=== PATIENT | male | born 1935 | race Caucasian/White ===

== ENCOUNTER 2017-02-04 12:34 | Emergency (ER) | payer MEDICARE, OTHER ==
[2017-02-04 12:41] VITALS: O2SAT 97
--- NOTE | 2017-02-04 13:13 | ERPHSYRPT ---
- History of Present Illness Time Seen by Provider: 02/04/17 13:09 Source: patient, family Exam Limitations: no limitations Patient Subjective Stated Complaint: PT REPORTS TAKING A FINAL DRINK OF COFFEE WHEN HE SWALLOWED SOMETHING-STATES THAT HE FELT IT IN HIS THROAT THEN CAN FEEL IT LOWER-UNSURE OF WHAT IT WAS-DENIES COUGH-DENIES SOB-DENIES PAIN Triage Nursing Assessment: PT PINK WARM ET [id number] EASY ET NONLABORED- BREATH SOUNDS EQUAL BILATERALLY-NO RETRACTIONS OR INCREASED WORK OF BREATHING NOTED Physician History: The patient is an 81-year-old male with his family complaining that something is stuck in his throat. About 30 minutes ago the patient made instant hot coffee in the microwave. He took a big drink of it and noticed something hard in the coffee. He unfortunately swallowed it and it stuck in his upper esophagus. On the way to the ER, it dislodged and moved farther down his esophagus. He states it is stuck there his stomach. He states he can feel it. He is able to swallow his saliva. He has no shortness of breath. He does not know what it could be because it was instant coffee. His past medical history is unremarkable. Timing/Duration: today Severity: mild Modifying Factors: Improves With: eating Associated Symptoms: denies symptoms Allergies/Adverse Reactions: No Known Drug Allergies Allergy (Verified 02/04/17 12:42) Home Medications: No Home Meds 1 ea UD 02/04/17 [History] Hx Tetanus, Diphtheria Vaccination/Date Given: No Hx Influenza Vaccination/Date Given: Yes Hx Pneumococcal Vaccination/Date Given: No Immunizations Up to Date: Yes - Review of Systems Constitutional: No Fever, No Chills Eyes: No Symptoms Ears, Nose, & Throat: Other (FB in throat) Respiratory: No Cough, No Dyspnea Cardiac: No Chest Pain, No Edema, No Syncope Abdominal/Gastrointestinal: No Abdominal Pain, No Nausea, No Vomiting, No Diarrhea Genitourinary Symptoms: No Dysuria Musculoskeletal: No Back Pain, No Neck Pain Skin: No Rash Neurological: No Dizziness, No Focal Weakness, No Sensory Changes Psychological: No Symptoms Endocrine: No Symptoms Hematologic/Lymphatic: No Symptoms Immunological/Allergic: No Symptoms All Other Systems: Reviewed and Negative - Past Medical History Pertinent Past Medical History: Yes Neurological History: No Pertinent History ENT History: No Pertinent History Cardiac History: No Pertinent History Respiratory History: No Pertinent History Endocrine Medical History: No Pertinent History Musculoskeletal History: No Pertinent History GI Medical History: Hernia History: Bladder Cancer Psycho-Social History: No Pertinent History Male Reproductive Disorders: No Pertinent History - Past Surgical History Past Surgical History: Yes Neuro Surgical History: Other Cardiac: No Pertinent History Respiratory: No Pertinent History Gastrointestinal: Hernia Repair, Other Genitourinary: No Pertinent History Male Surgical History: Other Other Surgical History: non-hodkins lymphoma exploratory surgery x two, bladder growths removed r/t bladder cancer - Social History Smoking Status: Never smoker Exposure to second hand smoke: No Drug Use: none Patient Lives Alone: No - Nursing Vital Signs Nursing Vital Signs: Initial Vital Signs Temperature 98.1 F Temperature Source Oral Pulse Rate 72 Respiratory Rate 18 Blood Pressure [] 124/79 Pain Intensity 0 - Physical Exam General Appearance: no apparent distress, alert Eye Exam: PERRL/EOMI, eyes nml inspection Ears, Nose, Throat Exam: normal ENT inspection, TMs normal, pharynx normal, moist mucous membranes Neck Exam: normal inspection, non-tender, supple, full range of motion Respiratory Exam: normal breath sounds, lungs clear, No respiratory distress Cardiovascular Exam: regular rate/rhythm, normal heart sounds, normal peripheral pulses Gastrointestinal/Abdomen Exam: soft, normal bowel sounds, No tenderness, No mass Rectal Exam: not done Back Exam: normal inspection, normal range of motion, No CVA tenderness, No vertebral tenderness Extremity Exam: normal inspection, normal range of motion, pelvis stable Neurologic Exam: alert, oriented x 3, cooperative, normal mood/affect, nml cerebellar function, nml station & gait, sensation nml, No motor deficits Skin Exam: normal color, warm, dry, No rash Lymphatic Exam: No adenopathy SpO2 Interpretation: normal SpO2: 97 Oxygen Delivery: Room Air - Radiology Exams Other X-ray Interpretation: Teleradiologist Report (No opaque FB per Dr Peck) Chest X-ray Interpretation: Teleradiologist Report (No opaque FB per Dr Peck) Abdomen X-ray Interpretation: Teleradiologist Report (NO opaque FB per Dr Peck) Ordered Tests: Active Orders 24 hr Category Date Time Status ABDOMEN 2 VIEW Stat Exams 02/04/17 13:15 Completed CHEST 2 VIEWS (PA AND LAT) Stat Exams 02/04/17 13:13 Completed NECK SOFT TISSUE Stat Exams 02/04/17 13:13 Completed - Progress Progress: improved Progress Note: 02/04/17 14:33 The soft tissue neck x-ray, chest x-ray, and abdominal x-ray, did not show any radio opaque foreign bodies. The patient ate crackers and drank water and states he feels that the foreign body that was stuck in the bottom of his esophagus has now passed through. He feels fine now. Counseled pt/family regarding: diagnosis, rad results - Departure Time of Disposition: 14:35 Departure Disposition: Home Clinical Impression: Esophageal foreign body Condition: Stable Critical Care Time: No Additional Instructions: You had a foreign body in her lower esophagus. When you drank water and ate crackers, it dislodged it and caused to pass through. The x-rays were normal. Follow-up as needed.
[2017-02-04 13:48] VITALS: PULSE 72
--- NOTE | 2017-02-04 14:18 | XRAY ---
Exam: Two-view chest from 02/04/2017 Comparison: Two-view chest from 10/30/2016. Indication: Patient was drinking coffee and felt like he was getting choked, questionable foreign body. Findings: Upright PA and lateral chest films are submitted for evaluation. The heart size and contour are normal. A minimal epicardial fat pad is seen on the left. The sarahi and mediastinal structures appear intact. There is no evidence of mediastinal shift or unilateral air trapping. No radiopaque soft tissue foreign body is seen. No air space infiltrates, vascular congestion, pneumothorax, or pleural fluid is seen. I believe there is a tiny calcified granuloma at the lateral right lower lobe representing no change. Mild lower dorsal kyphosis and diffuse thoracic spondylosis are seen. Impression: 1. No infiltrates or other acute cardiopulmonary disease is seen. I see no definite evidence of foreign body, midline shift, or asymmetric air trapping within one hemithorax.
--- NOTE | 2017-02-04 14:24 | XRAY ---
Exam: Two-view soft tissue neck (4 images) from 02/04/2017. Comparison: None. Indication: Patient was having coffee and felt like he got choked. Findings: 2 AP images and 2 lateral images are submitted for evaluation. The cervical airway appears unremarkable. There is no radiopaque soft tissue foreign body or prevertebral soft tissue swelling. There is mild degenerative disc disease at C6-C7 manifested by interspace narrowing and mild to moderate anterior vertebral endplate spurring. Only a few teeth and dental hardware remain within the anterior lower mouth. The patient may have dentures which are nonopaque. Correlate clinically. I note some soft tissue calcification on each side of midline at the C5 level which may represent vascular calcification within the carotid artery bifurcations. Apophyseal joint spurring is seen within the mid to lower cervical spine. Impression: 1. No radiopaque soft tissue foreign body is seen. The cervical airway and prevertebral soft tissues appear unremarkable. The epiglottis is of normal size. 2. Mild degenerative disc disease is seen at C6-C7. I also note some apophyseal joint osteoarthritis on each side of midline within the mid to lower cervical spine. 3. Atherosclerotic vascular calcification is seen within both carotid artery bifurcations.
--- NOTE | 2017-02-04 14:26 | XRAY ---
Exam: Two-view abdomen from 02/04/2017. Comparison: None. Indication: Patient was drinking coffee when he got choked, questionable foreign body. Findings: 2 supine images of the abdomen and an upright image of the abdomen were obtained. The bowel gas pattern appears unremarkable. A mild amount of scattered colonic stool is seen. No organomegaly or free intraperitoneal air is seen. Numerous surgical clips are seen projected over the left side of the L3 vertebral body. Correlate with surgical history. There is a small calcification within the lower aspect of the pelvis on each side of midline, likely representing a phlebolith. Correlate clinically to exclude a distal ureteral stone. Mild osteophyte formation is seen within the lower thoracolumbar lumbar spine. Impression: 1. Unremarkable bowel gas pattern. Specifically, I see no radiopaque soft tissue foreign body. 2. No free intraperineal air is seen. 3. Evidence of prior mid abdominal surgery. Correlate with surgical history.
[2017-02-04 14:42] VITALS: BP 131/74
== END 2017-02-04 14:42 | disposition home or self-care (01) ==
LOC: ED 12:34
DX: T18.108A Unspecified foreign body in esophagus causing other injury, initial encounter (principal)
CPT/HCPCS: 70360; 71020; 74020; 99281; 99283

== ENCOUNTER 2017-03-11 09:13 | Day surgery (SDC) | payer MEDICARE, OTHER ==
[~2017-03-11 09:13] MED LIST: ACETAZOLAMIDE 250 MG TABLET PO ONE; Ak-Dilate OPHTHALMIC*** 0.71 ML, Cyclogyl 1% OPHTH SOL 5 ML 0.71 ML, GATIFLOXACIN 0.5% ... OP ONE; BETADINE 5% OPHTHALMIC 30 ML OP ONE; BSS 500 ML, Fortaz/Tazicef 1 GM** 0.2 G IO ONE; Epinephrine Preservative Free 1 MG/ML INTRAOP ONE; LIDOCAINE HCL 1% AMPUL 5 ML IJ ONE; Lactated Ringers 1,000 ML IV ONE; Lactated Ringers 1,000 ML IV SCH; TETRACAINE 0.5% STERI-UNIT SOL OP ONE; Zofran 4 MG/2 ML VIAL IV PRN
[2017-03-11] MEDS ORDERED: GARAMYCIN 0.3% OPHTH SOL OP ONE (09:14)
[2017-03-11] MEDS ORDERED: DIPRIVAN 200 MG/20 ML IV ONE (09:14)
[2017-03-11 13:03] VITALS: BP 133/59; PULSE 54; O2SAT 98
--- NOTE | 2017-03-11 13:43 | OP ---
DATE/TIME OF OPERATION: 03/11/2017 1121 TIME DICTATED: 1312 PREOPERATIVE DIAGNOSIS: Senile cataract of right eye. POSTOPERATIVE DIAGNOSIS: Senile cataract of right eye. SURGEON: Diamante Jiang MD T[employer] AIRCRAFT CONTROLLER: None. OPERATION: Cataract extraction of right eye with an intraocular lens implant. STANDARD __X___ COMPLEX ANESTHESIA: MAC. ___X___ Monitored anesthesia care in combination with topical and intra-cameral anesthesia (because of the established specific risk of reflux, arrhythmias, or an anxiety attack associated with ocular manipulation as well as difficulty of the digital service engineer to manage such potentially catastrophic events while simultaneously attempting to complete the surgical procedure, it was deemed necessary for the patient's safety to have an anesthesiologist or a nurse turn down attendant present during the procedure whenever possible. The anesthesiologist or the nurse turn down attendant was utilized to monitor and regulate the intravenous sedation of the patient, so the patient was cooperative, relaxed, and comfortable). Topical anesthesia using Tetracaine eye drops together with intra cameral anesthesia using Lidocaine 1% MPF. The nurse was utilized to monitor the patient. ANESTHESIA PROVIDER: Devon Conrad CRNA. COMPLICATIONS: None. BLOOD LOSS: None. INDICATIONS: The patient is undergoing cataract surgery in the hopes of eliminating the visual complaints and difficulty. PROCEDURE: After arriving at the facility's outpatient surgery area, an IV was started; the patient was given 5 mg of p.o. Versed. (If an anesthesia provider was not monitoring the patient) The patient was then given topical anesthetic Tetracaine eye drops. A cotton pellet was soaked into a solution of a combination of Zymaxid 0.5%, Benjamin-Synephrine 2.5% and Ocufen (other drops might have been substituted referenced in the patient's record). The pellet was inserted by the RN into the lower conjunctival cul-de-sac with a sterile forceps and left for 20 minutes. The pellet was then removed by the RN with a sterile forceps before taking the patient to the operating room. The preoperative area nurse identified the patient and marked the correct eye to be operated on. I identified the correct eye to be operated on and marked it appropriately in the outpatient surgery area. The patient was then taken into the operating room. Tetracaine eye drops were installed again in the correct eye. The eyelids and the lashes and the lid margins were scrubbed with Betadine solution. One drop of the diluted Betadine solution was placed in the conjunctival cul-de-sac for 45 seconds and then was irrigated. A drop of Tetracaine Gel was placed in the conjunctival cul-de-sac. The patient's forehead was taped to secure it during the procedure. The patient was monitored. The patient was then draped in the usual way for this procedure. An eye speculum was used to separate the eyelids. The eye was then fixated and a temporal 2.5 mm incision was made in the clear cornea temporally at the limbus. Through the incision, 0.25 cc of 1% non-preserved lidocaine was injected into the anterior chamber for intracameral anesthesia. The anterior chamber was then filled with viscoelastic. The pupil was small. I felt that it would be safer to mechanically dilate the pupil. A Malyugin ring was used at this point which dilated the pupil. That was removed at the end of the procedure prior to aspiration of the viscoelastic from the anterior chamber and posterior to the intraocular lens implant. The cataract had a great amount of cortical changes. That rendered seeing the anterior capsule difficult for a safe performance of an anterior capsulotomy. I injected an air bubble into the anterior chamber. I then injected 1 ML of vision blue solution into the anterior chamber. The vision blue solution was irrigated from the anterior chamber after 30 seconds. The anterior capsule was stained which facilitated performing the anterior capsulotomy safely. After that was completed, a cystotome was introduced into the anterior chamber and a round anterior capsulotomy was performed. The capsule was removed by a forceps. Hydrodissection was next carried utilizing a 25-gauge cannula and balanced salt solution to delineate the cortical material from the capsule and the nucleus from the cortical material. The nucleus was rotated freely into the capsular bag with no difficulty. The phaco tip of the [employer] Phacoemulsifier was introduced into the anterior chamber and two grooves were made into the nucleus 90 degrees apart. Using two spatulas resulted into the nucleus being fractured into four quadrants. The phaco tip was then used to remove each quadrant of the nucleus. Viscoelastic was used during this process to protect the corneal endothelium. Once the entire nucleus was removed, the phaco tip then was removed and the irrigation tip was introduced into the eye and the cortex was removed. The posterior capsule was polished. It was noticed that there was a tear into the posterior capsule with few vitreous strands into the pupil plan. An anterior vitrectomy was performed. A 21.50 diopter, ZXR00 Symfony implant, was inspected and found to be grossly normal. The implant was inserted into the implant injector cartridge; Viscoelastic again was introduced into the anterior chamber, which filled the capsular bag. The implant injector's cartridge tip was placed at the limbal wound and the posterior chamber implant was released into the capsular bag and rotated appropriately. The implant was found to be into the capsular bag and it was centered. ___X__ 0.2 ml of Tri-Moxi was introduced via 27 gauge cannula into the vitreous cavity through the ciliary processes. Viscoelastic was aspirated from the anterior chamber and posterior to the intraocular lens implant from the capsular bag using the irrigating tip. The anterior chamber was irrigated and filled with 5 cc antibiotic solution (500 cc of BSS plus 2 ml of Fortaz 100 mg/ml) ( if patient was not allergic to the medication). The lips of the corneal incision were hydrated using BSS solution. The anterior chamber was checked and found to be water tight. One drop each of antibiotic, steroid and NSAID drops (refer to chart for drops used) were placed in the conjunctival cul-de-sac of the operated eye. Patient tolerated the procedure quite well and left the operating room in satisfactory condition. NOTES: 1) Gentamicin was used in the conjunctival cul-de-sac at the end of the procedure and to use four times a day for one week. 2) Two limbal relaxing incisions were made at the beginning of the procedure at the 170 degree meridian. DISCHARGE SUMMARY: The patient was released in stable condition. The patient and those with the patient were given an instruction sheet as of how to care for the eye after surgery as well as counseling on any abnormal laboratory studies by the postoperative RN. The patient was also given an appointment card for follow-up in the office and is to call immediately for any difficulties including but not limited to pain in the eye, decreased vision, discharge from the eye, headache and or fever. DISCHARGE DIAGNOSIS: Pseudophakia of right eye.
== END 2017-03-11 13:15 | disposition home or self-care (01) ==
LOC: SDC 09:13
PROVIDERS: ATTEND Ophthalmology
PROC: 08RJ3JZ Replacement of Right Lens with Synthetic Substitute, Percutaneous Approach (ICD-10-PCS; principal; 2017-03-11)
PROC: 08B43ZZ Excision of Right Vitreous, Percutaneous Approach (ICD-10-PCS; 2017-03-11)
DX: H25.9 Unspecified age-related cataract (principal)
CPT/HCPCS: 00142; 99100; C1780; J0171; J2704; S0581; A9270-GY

== ENCOUNTER 2017-04-15 11:18 | Day surgery (SDC) | payer MEDICARE, OTHER ==
[~2017-04-15 11:18] MED LIST changes: -BETADINE 5% OPHTHALMIC 30 ML OP ONE; -BSS 500 ML, Fortaz/Tazicef 1 GM** 0.2 G IO ONE; -Epinephrine Preservative Free 1 MG/ML INTRAOP ONE; -LIDOCAINE HCL 1% AMPUL 5 ML IJ ONE
[2017-04-15] MEDS ORDERED: DIPRIVAN 200 MG/20 ML IV ONE (11:19)
[2017-04-15] MEDS ORDERED: Epinephrine Preservative Free 1 MG/ML INTRAOP ONE (13:00)
[2017-04-15] MEDS ORDERED: BETADINE 5% OPHTHALMIC 30 ML OP ONE (13:00)
[2017-04-15] MEDS ORDERED: BSS 500 ML, Fortaz/Tazicef 1 GM** 0.2 G IO ONE ×2 (13:00)
[2017-04-15] MEDS ORDERED: LIDOCAINE HCL 1% AMPUL 5 ML IJ ONE (13:00)
[2017-04-15 13:29] VITALS: O2SAT 97
[2017-04-15 13:44] VITALS: BP 122/66; PULSE 56
--- NOTE | 2017-04-16 08:14 | OP ---
DATE/TIME OF OPERATION: 04/15/2017 1232 TIME DICTATED: PREOPERATIVE DIAGNOSIS: Senile cataract of left eye. POSTOPERATIVE DIAGNOSIS: Senile cataract of left eye. SURGEON: Diamante Jiang MD LENS HARDENER: None. OPERATION: Cataract extraction of left eye with an intraocular lens implant. STANDARD COMPLEX __X____ ANESTHESIA: MAC. ___X___ Monitored anesthesia care in combination with topical and intra-cameral anesthesia (because of the established specific risk of reflux, arrhythmias, or an anxiety attack associated with ocular manipulation as well as difficulty of the numerologist to manage such potentially catastrophic events while simultaneously attempting to complete the surgical procedure, it was deemed necessary for the patient's safety to have an anesthesiologist or a nurse engraver block present during the procedure whenever possible. The anesthesiologist or the nurse engraver block was utilized to monitor and regulate the intravenous sedation of the patient, so the patient was cooperative, relaxed, and comfortable). Topical anesthesia using Tetracaine eye drops together with intra cameral anesthesia using Lidocaine 1% MPF. The nurse was utilized to monitor the patient. ANESTHESIA PROVIDER: Devon Conrad CRNA. COMPLICATIONS: None. BLOOD LOSS: None. INDICATIONS: The patient is undergoing cataract surgery in the hopes of eliminating the visual complaints and difficulty. PROCEDURE: After arriving at the facility's outpatient surgery area, an IV was started; the patient was given 5 mg of p.o. Versed. (If an anesthesia provider was not monitoring the patient) The patient was then given topical anesthetic Tetracaine eye drops. A cotton pellet was soaked into a solution of a combination of Zymaxid 0.5%, Benjamin-Synephrine 2.5% and Ocufen (other drops might have been substituted referenced in the patient's record). The pellet was inserted by the RN into the lower conjunctival cul-de-sac with a sterile forceps and left for 20 minutes. The pellet was then removed by the RN with a sterile forceps before taking the patient to the operating room. The preoperative area nurse identified the patient and marked the correct eye to be operated on. I identified the correct eye to be operated on and marked it appropriately in the outpatient surgery area. The patient was then taken into the operating room. Tetracaine eye drops were installed again in the correct eye. The eyelids and the lashes and the lid margins were scrubbed with Betadine solution. One drop of the diluted Betadine solution was placed in the conjunctival cul-de-sac for 45 seconds and then was irrigated. A drop of Tetracaine Gel was placed in the conjunctival cul-de-sac. The patient's forehead was taped to secure it during the procedure. The patient was monitored. The patient was then draped in the usual way for this procedure. An eye speculum was used to separate the eyelids. The eye was then fixated and a temporal 2.5 mm incision was made in the clear cornea temporally at the limbus. Through the incision, 0.25 cc of 1% non-preserved lidocaine was injected into the anterior chamber for intracameral anesthesia. The anterior chamber was then filled with viscoelastic. __X___ The pupil was small. I felt that it would be safer to mechanically dilate the pupil. A Malyugin ring was used at this point which dilated the pupil. That was removed at the end of the procedure prior to aspiration of the viscoelastic from the anterior chamber and posterior to the intraocular lens implant. The cataract had a great amount of cortical changes. That rendered seeing the anterior capsule difficult for a safe performance of an anterior capsulotomy. I injected an air bubble into the anterior chamber. I then injected 1 ML of vision blue solution into the anterior chamber. The vision blue solution was irrigated from the anterior chamber after 30 seconds. The anterior capsule was stained which facilitated performing the anterior capsulotomy safely. After that was completed, a cystotome was introduced into the anterior chamber and a round anterior capsulotomy was performed. The capsule was removed by a forceps. Hydrodissection was next carried utilizing a 25-gauge cannula and balanced salt solution to delineate the cortical material from the capsule and the nucleus from the cortical material. The nucleus was rotated freely into the capsular bag with no difficulty. The phaco tip of the [employer] Phacoemulsifier was introduced into the anterior chamber and two grooves were made into the nucleus 90 degrees apart. Using two spatulas resulted into the nucleus being fractured into four quadrants. The phaco tip was then used to remove each quadrant of the nucleus. Viscoelastic was used during this process to protect the corneal endothelium. Once the entire nucleus was removed, the phaco tip then was removed and the irrigation tip was introduced into the eye and the cortex was removed. The posterior capsule was polished. It was noticed that there was a tear into the posterior capsule with few vitreous strands into the pupil plan. An anterior vitrectomy was performed. A 21.00 diopter, ZXR00, Symfony posterior chamber lens implant, was inspected and found to be grossly normal. The implant was inserted into the implant injector cartridge; Viscoelastic again was introduced into the anterior chamber, which filled the capsular bag. The implant injector's cartridge tip was placed at the limbal wound and the posterior chamber implant was released into the capsular bag and rotated appropriately. The implant was found to be into the capsular bag and it was centered. __X___ 0.2 ml of Tri-Moxi was introduced via 27 gauge cannula into the vitreous cavity through the ciliary processes. Viscoelastic was aspirated from the anterior chamber and posterior to the intraocular lens implant from the capsular bag using the irrigating tip. The anterior chamber was irrigated and filled with 5 cc antibiotic solution (500 cc of BSS plus 2 ml of Fortaz 100 mg/ml) ( if patient was not allergic to the medication). The lips of the corneal incision were hydrated using BSS solution. The anterior chamber was checked and found to be water tight. One drop each of antibiotic, steroid and NSAID drops (refer to chart for drops used) were placed in the conjunctival cul-de-sac of the operated eye. Patient tolerated the procedure quite well and left the operating room in satisfactory condition. DISCHARGE SUMMARY: The patient was released in stable condition. The patient and those with the patient were given an instruction sheet as of how to care for the eye after surgery as well as counseling on any abnormal laboratory studies by the postoperative RN. The patient was also given an appointment card for follow-up in the office and is to call immediately for any difficulties including but not limited to pain in the eye, decreased vision, discharge from the eye, headache and or fever. DISCHARGE DIAGNOSIS: Pseudophakia of left eye.
== END 2017-04-15 13:40 | disposition home or self-care (01) ==
LOC: SDC 11:18
PROVIDERS: ATTEND Ophthalmology
PROC: 08RK3JZ Replacement of Left Lens with Synthetic Substitute, Percutaneous Approach (ICD-10-PCS; principal; 2017-04-15)
DX: H25.9 Unspecified age-related cataract (principal)
CPT/HCPCS: 65820; 66982; V2788; 00142; 99100; J0171; J2704; A9270-GY

== ENCOUNTER 2021-12-13 14:53 | Emergency (ER) | payer MEDICARE, OTHER ==
--- NOTE | 2021-12-13 15:06 | ERPHSYRPT ---
- History of Present Illness Time Seen by Provider: 12/13/21 15:06 Historian: patient, family Exam Limitations: no limitations Physician History: This is an 86-year-old white male patient of Dr. Delcid who presents to the emergency department with a complaint of constipation and associated weight loss. This patient has a history of non-Hodgkin's lymphoma which required exploratory laparotomy approximately 20 years ago. Patient has also had superficial, low-grade bladder tumors/cancers that have been excised over the last several years. Finally, he has had right jaw surgery to remove a cancer. He did not receive any chemotherapy or radiation for this surgery. The jaw surgery was performed approximately 1 year ago. At that time, he weighed approximately 8 185 pounds. In the following weeks to months he did lose weight because he was not eating well but did reach a point where he weighed approximately 175 pounds. That weight he maintained until approximately 2 weeks ago when he began not feeling like he wanted to eat. He felt bloated. He began having some constipation issues. He finally had a bowel movement this morning that he describes as a good bowel movement following recommendations/prescriptions from Dr. Delcid yesterday. This regimen included fiber Gummies and laxatives. Prior to that, he did not have a bowel movement for 6 days. He states he just does not have much of an appetite. Patient has appointment to see his primary care doctor, Dr. Mckeon, tomorrow morning at 10 AM Timing/Duration: day(s) (6) Activities at Onset: none Pain Radiation: no radiation Severity of Pain-Max: none Severity of Pain-Current: none Modifying Factors: Improves With: nothing Associated Symptoms: loss of appetite, weakness, other (Constipation and weight loss) Previous symptoms: no prior history Allergies/Adverse Reactions: No Known Drug Allergies Allergy (Verified 12/13/21 15:09) Home Medications: Ibuprofen 400 mg PO Q4HPRN PRN 03/11/17 [History] Hx Tetanus, Diphtheria Vaccination/Date Given: No Hx Influenza Vaccination/Date Given: Yes Hx Pneumococcal Vaccination/Date Given: No Travel Risk - International Travel Have you traveled outside of the country in past 3 weeks: No - Coronavirus Screening Are you exhibiting any of the following symptoms?: No Close contact with a COVID-19 positive Pt in past 14-21 Days: No - Review of Systems Constitutional: Weakness, Weight Loss Eyes: No Symptoms Ears, Nose, & Throat: No Symptoms Respiratory: No Symptoms Cardiac: No Symptoms Abdominal/Gastrointestinal: Constipation, Appetite Changes Genitourinary Symptoms: No Symptoms Musculoskeletal: No Symptoms Skin: No Symptoms Neurological: No Symptoms Psychological: No Symptoms Endocrine: No Symptoms Hematologic/Lymphatic: No Symptoms Immunological/Allergic: No Symptoms All Other Systems: Reviewed and Negative - Past Medical History Pertinent Past Medical History: Yes Neurological History: No Pertinent History ENT History: Cataracts Cardiac History: No Pertinent History Respiratory History: No Pertinent History Endocrine Medical History: No Pertinent History Musculoskeletal History: No Pertinent History GI Medical History: Hernia History: Bladder Cancer Psycho-Social History: No Pertinent History Male Reproductive Disorders: No Pertinent History - Past Surgical History Past Surgical History: Yes Neuro Surgical History: Other Cardiac: No Pertinent History Respiratory: No Pertinent History Gastrointestinal: Hernia Repair, Other Genitourinary: No Pertinent History Musculoskeletal: No Pertinent History Male Surgical History: Other Other Surgical History: non-hodkins lymphoma exploratory surgery x two, bladder growths removed r/t bladder cancer - Social History Smoking Status: Never smoker Exposure to second hand smoke: No Drug Use: none Patient Lives Alone: No - Nursing Vital Signs Nursing Vital Signs: Initial Vital Signs Temperature 98.4 F 12/13/21 15:08 Pulse Rate 76 12/13/21 15:08 Respiratory Rate 18 12/13/21 15:08 Blood Pressure 142/70 12/13/21 15:08 O2 Sat by Pulse Oximetry 98 12/13/21 15:08 Pain Scale Pain Intensity 0 - Physical Exam General Appearance: no apparent distress, alert Eye Exam: PERRL/EOMI, eyes nml inspection Ears, Nose, Throat Exam: normal ENT inspection, moist mucous membranes Neck Exam: normal inspection, non-tender, supple, full range of motion Respiratory Exam: normal breath sounds, lungs clear, No chest tenderness, No re spiratory distress Cardiovascular Exam: regular rate/rhythm, normal heart sounds, normal peripheral pulses Gastrointestinal/Abdomen Exam: soft, normal bowel sounds, No tenderness, No mass Rectal Exam: not done Back Exam: normal inspection, normal range of motion, No CVA tenderness, No vertebral tenderness Extremity Exam: normal inspection, normal range of motion, pelvis stable Neurologic Exam: alert, oriented x 3, cooperative, test department helper II-XII nml as tested, normal mood/affect, sensation nml Skin Exam: normal color, warm, dry Lymphatic Exam: No adenopathy SpO2 Interpretation: normal O2 Delivery: Room Air - Course Nursing assessment & vital signs reviewed: Yes Ordered Tests: Active Orders 24 hr Category Date Time Status IV Insertion STAT Care 12/13/21 15:22 Active ABDOMEN AND PELVIS W/0 CONTRAS [CT] Stat Exams 12/13/21 15:23 Completed AMYLASE Stat Lab 12/13/21 15:55 Completed CBC W DIFF Stat Lab 12/13/21 15:55 Completed CMP Stat Lab 12/13/21 15:55 Completed LIPASE Stat Lab 12/13/21 15:55 Completed UA W/RFX CULTURE Stat Lab 12/13/21 16:48 Completed Medication Summary Generic Name Dose Route Start Last Admin Trade Name Freq PRN Reason Stop Dose Admin Sodium Chloride 1,000 mls @ 100 mls/hr 12/13/21 15:30 12/13/21 15:37 Sodium Chloride 0.9% 1000 Ml IV 01/12/22 15:29 100 mls/hr .Q10H TAHIRA Administration Lab/Rad Data: Laboratory Result Diagrams 12/13/21 15:55 12/13/21 15:55 Laboratory Results 12/13/21 12/13/21 12/13/21 Range/Units 16:48 15:55 15:55 WBC 6.0 (4.0-10.5) x10^3/uL RBC 4.85 (4.1-5.6) x10^6/uL Hgb 13.5 (12.5-18.0) g/dL Hct 42.6 (42-50) % MCV 87.8 (78-100) fL MCH 27.8 (26-32) pg MCHC 31.7 L (32-36) g/dL RDW 12.9 (11.5-14.0) % Plt Count 248 (150-450) x10^3/uL MPV 8.8 (7.5-11.0) fL Gran % 74.3 H (36.0-66.0) % Immature Gran % (Auto) 0.2 (0.00-0.4) % Nucleat RBC Rel Count 0.0 (0.00-0.1) % Eos # (Auto) 0.03 (0-0.5) x10^3/uL Immature Gran # (Auto) 0.01 (0.00-0.03) x10^3u/L Absolute Lymphs (auto) 1.05 (1.0-4.6) x10^3/uL Absolute Monos (auto) 0.42 (0.0-1.3) x10^3/uL Absolute Nucleated RBC 0.00 (0.00-0.01) x10^3u/L Lymphocytes % 17.6 L (24.0-44.0) % Monocytes % 7.1 (0.0-12.0) % Eosinophils % 0.5 (0.00-5.0) % Basophils % 0.3 (0.0-0.4) % Absolute Granulocytes 4.42 (1.4-6.9) x10^3/uL Basophils # 0.02 (0-0.4) x10^3/uL Sodium 136 L (137-145) mmol/L Potassium 5.0 (3.5-5.1) mmol/L Chloride 100 (98-107) mmol/L Carbon Dioxide 27 (22-30) mmol/L Anion Gap 14.8 (5-15) MEQ/L BUN 27 H (9-20) mg/dL Creatinine 1.14 (0.66-1.25) mg/dL Estimated GFR > 60.0 ML/MIN Glucose 91 (74-106) mg/dL Calcium 8.9 (8.4-10.2) mg/dL Total Bilirubin 0.70 (0.2-1.3) mg/dL AST 29 (17-59) U/L ALT 21 (0-50) U/L Alkaline Phosphatase 74 (38-126) U/L Serum Total Protein 6.5 (6.3-8.2) g/dL Albumin 3.8 (3.5-5.0) g/dL Amylase 53 (30-110) U/L Lipase 73 (23-300) U/L Urinalys Dipstick Clnc MAIN LAB Urine Color YELLOW (YELLOW) Urine Appearance CLEAR (CLEAR) Urine pH 5.5 (5-6) Ur Specific [place] >=1.030 (1.005-1.025) POC Urine Protein Conf NEGATIVE (Negative) Urine Ketones TRACE (NEGATIVE) Urine Nitrite NEGATIVE (NEGATIVE) Urine Bilirubin NEGATIVE (NEGATIVE) Urine Urobilinogen 0.2 (0-1) mg/dL Urine Leukocytes NEGATIVE (NEGATIVE) Urine WBC (Auto) 0-2 (0-5) /HPF Urine RBC (Auto) 0-2 (0-2) /HPF U Epithel Cells (Auto) NONE (FEW) /HPF Urine Bacteria (Auto) NONE (NEGATIVE) /HPF Urine RBC NEGATIVE (0-5) Lauri/ul Urine Mucus (Auto) SLIGHT (NEGATIVE) /HPF Ur Culture Indicated? NO Urine Glucose NEGATIVE (NEGATIVE) mg/dL - Progress Progress: improved Counseled pt/family regarding: lab results, diagnosis, need for follow-up, rad results - Departure Departure Disposition: Home Clinical Impression: Constipation, Intraabdominal mass, Mild dehydration Condition: Stable Critical Care Time: No Referrals: ALESHA MCKEON MD [Primary Care Provider] - Follow up/PCP as directed Additional Instructions: Drink plenty of liquids. Continue the regimen to help your constipation as discussed and as given by your outpatient doctor. Keep your appointment with Dr. Mckeon tomorrow.
[2021-12-13] MEDS ORDERED: Sodium Chloride 0.9% 1000 ML 1,000 ML IV SCH (15:30)
[2021-12-13] MEDS ORDERED: Sodium Chloride 0.9% 1000 ML 1,000 ML ONE (15:37)
[2021-12-13 16:01] LABS: Absolute Neutrophil Ct (ANC) 4.42 x10^3/uL (1.4-6.9); Basophil (Absolute #) 0.02 x10^3/uL (0-0.4); Eosinophil % 0.5 % (0.00-5.0); Eosinophil (Absolute #) 0.03 x10^3/uL (0-0.5); Hematocrit 42.6 % (42-50); Hemoglobin 13.5 g/dL (12.5-18.0); Lymphocyte (Absolute #) 1.05 x10^3/uL (1.0-4.6); Lymphocytes % 17.6 % (24.0-44.0); Mean Cell Volume 87.8 fL (78-100); Mean Corpuscular Hemoglobin 27.8 pg (26-32); Mean Corpuscular Hgb Concent. 31.7 g/dL (32-36); Mean Platelet Volume 8.8 fL (7.5-11.0); Monocyte (Absolute #) 0.42 x10^3/uL (0.0-1.3); Monocytes % 7.1 % (0.0-12.0); Neutrophil % 74.3 % (36.0-66.0); Platelet Count 248 x10^3/uL (150-450); Red Blood Count 4.85 x10^6/uL (4.1-5.6); Red Cell Distribution Width 12.9 % (11.5-14.0)
[2021-12-13 16:20] LABS: ALBUMIN 3.8 g/dL (3.5-5.0); ALKALINE PHOSPHATASE 74 U/L (38-126); AMYLASE 53 U/L (30-110); ANION GAP 14.8 MEQ/L (5-15); BLOOD UREA NITROGEN 27 mg/dL (9-20); CHLORIDE 100 mmol/L (98-107); Calcium 8.9 mg/dL (8.4-10.2); Carbon Dioxide 27 mmol/L (22-30); Creatinine 1 1.14 mg/dL (0.66-1.25); EST GLOMERULAR FILTRATION RATE > 60.0 ML/MIN; Glucose 91 mg/dL (74-106); LIPASE 73 U/L (23-300); SGOT/AST 29 U/L (17-59); SGPT/ALT 21 U/L (0-50); SODIUM 136 mmol/L (137-145); Total Protein 6.5 g/dL (6.3-8.2)
--- NOTE | 2021-12-13 16:30 | XRAY ---
Indication: Weight loss and constipation. History of lymphoma, squamous cell carcinoma, and bladder cancer. Multiple contiguous axial images obtained through the abdomen and pelvis without contrast. Comparison: None Lung bases demonstrates minimal fibrosis/scarring. No infiltrate or effusion. Heart not enlarged. Small hiatal hernia. Noncontrasted stomach and bowel loops appear nonobstructed with normal appendix. Mild scattered colonic fecal debris greatest in the sigmoid. Midabdomen demonstrates 5.3 x 6.1 x 6.8 cm irregular soft tissue mass just inferior to pancreas presumed known lymphoma. No free fluid/air. 4.2 cm left mid renal cyst. Left kidney is also mildly hydronephrotic with proximal ureteral prominence up to 1.3 cm, tapering L3 level without ureteral calculus. Enlarged prostate gland impresses on the base of the bladder. A few tiny splenic calcified granulomas. Remaining liver, gallbladder, pancreas, spleen, adrenal glands, kidneys, ureters, and bladder are unremarkable for noncontrast exam. Moderate scattered vascular calcifications. Through 3.3 x 3.9 cm infrarenal fusiform aortic aneurysm. Osseous structures intact with osteopenia and mild degenerative changes throughout the thoracolumbar spine and both hips. Impression: 1. Midabdomen mesenteric soft tissue mass presumed known lymphoma as clinically reported. Outside comparison studies recommended if available. 2. Mild left renal hydronephrosis and proximal ureter dilatation without distal calculus. Retrograde pyelogram may yield further information if clinically warranted. 3. Incidental small hiatal hernia, mild diffuse fecal stasis, enlarged prostate gland, arteriosclerotic disease with distal AAA, and chronic bony findings.
[2021-12-13 16:55] LABS: Mucus SLIGHT /HPF (NEGATIVE); RBC 0-2 /HPF (0-2); WBC 0-2 /HPF (0-5)
[2021-12-13 17:00] LABS: Appearance CLEAR (CLEAR)
[2021-12-13 17:01] LABS: Bilirubin NEGATIVE (NEGATIVE); Dipstick done @ ? MAIN LAB; Glucose NEGATIVE (NEGATIVE); Ketones TRACE (NEGATIVE); Nitrite NEGATIVE (NEGATIVE); Ph 5.5 (5-6); Protein,Urine Dip NEGATIVE (Negative); RBC NEGATIVE Ery/ul (0-5); Specific Gravity >=1.030 (1.005-1.025); Urobilinogen 0.2 mg/dL (0-1)
[2021-12-13 17:02] LABS: Urine Cultured Indicated? NO
[2021-12-13 17:07] VITALS: BP 147/73; PULSE 62; O2SAT 97
== END 2021-12-13 17:39 | disposition home or self-care (01) ==
LOC: ED 14:53
DX: R19.09 Other intra-abdominal and pelvic swelling, mass and lump (principal); K59.00 Constipation, unspecified; E86.0 Dehydration; Z85.72 Personal history of non-Hodgkin lymphomas; Z85.51 Personal history of malignant neoplasm of bladder; Z85.89 Personal history of malignant neoplasm of other organs and systems; R63.0 Anorexia; R53.1 Weakness
CPT/HCPCS: 36415; 74176; 80053; 81015; 82150; 83690; 85025; 99284

== ENCOUNTER 2022-11-18 12:18 | Inpatient (IN) | payer MEDICARE, OTHER ==
[2022-11-18] MEDS ORDERED: Lasix 40 MG/4 ML IV ONE (13:10)
[2022-11-18 13:39] LABS: Hematocrit 30.4 % (42-50); Hemoglobin 9.4 g/dL (12.5-18.0); Mean Cell Volume 88.9 fL (78-100); Mean Corpuscular Hemoglobin 27.5 pg (26-32); Mean Corpuscular Hgb Concent. 30.9 g/dL (32-36); Mean Platelet Volume 9.3 fL (7.5-11.0); Platelet Count 212 x10^3/uL (150-450); Red Blood Count 3.42 x10^6/uL (4.1-5.6); Red Cell Distribution Width 14.3 % (11.5-14.0); White Blood Count 8.3 x10^3/uL (4.0-10.5)
[2022-11-18] MEDS: ROCEPHIN 1 Gm-D5w 50 ml Bag** 1 G/50 ML IVPB IV SCH (13:45)
[2022-11-18 14:01] LABS: ANION GAP 9.9 MEQ/L (5-15); BLOOD UREA NITROGEN 14 mg/dL (9-20); CHLORIDE 103 mmol/L (98-107); Calcium 7.5 mg/dL (8.4-10.2); Carbon Dioxide 26 mmol/L (22-30); Creatinine 1 0.78 mg/dL (0.66-1.25); EST GLOMERULAR FILTRATION RATE > 60.0 ML/MIN; Glucose 119 mg/dL (74-106); PREALBUMIN 7.99 mg/dL (17.6-36.0); Potassium 3.8 mmol/L (3.5-5.1); SODIUM 135 mmol/L (137-145)
[2022-11-18] MEDS: Zithromax 500 MG/ 250 ML NaCl Premix 500 MG/250 ML IVPB IV SCH (15:00)
--- NOTE | 2022-11-18 16:35 | PCM.HP ---
History of Present Illness - Chief Complaint Chief Complaint: pneumonia History of Present Illness: is a 87 year old male with cough, shortness of breath and fever, was seen in [facility] and xray showed some pneumonia and volume overload, he was given lasix and is having a very small amount of urine output every 10 minutes, he feels like he needs to go more but having trouble. He notes worsening of his cough and dyspnea, has a history of chf previously. - Review of Systems Constitutional: Fever Respiratory: Cough, Short Of Breath Cardiac: No Chest Pain, No Edema, No Syncope Abdominal/Gastrointestinal: No Abdominal Pain, No Nausea, No Vomiting, No Diarrhea Skin: No Rash All Other Systems: Reviewed and Negative Medications & Allergies Home Medications: Home Medication List Ibuprofen 400 mg PO Q4HPRN PRN 03/11/17 [History Confirmed 11/18/22] Cholecalciferol (Vitamin D3) [Vitamin D] 1,000 unit PO DAILY 11/18/22 [History Confirmed 11/18/22] Allergies/Adverse Reactions: Allergies Allergy/AdvReac Type Severity Reaction Status Date / Time No Known Drug Allergies Allergy Verified 12/13/21 15:09 - Past Medical History Past Medical History: Yes Neurological History: No Pertinent History ENT History: Cataracts Cardiac History: No Pertinent History Respiratory History: No Pertinent History Endocrine Medical History: No Pertinent History Musculoskelatal History: No Pertinent History GI Medical History: Hernia History: Bladder Cancer Pyscho-Social History: No Pertinent History Male Reproductive Disorders: No Pertinent History Comment: Nonhodgkins lymphoma twice, 20 yrs ago and again in 2021. just finished last chemo treatment 3 months ago. - Past Surgical History Past Surgical History: Yes Neuro Surgical History: Other Cardiac History: No Pertinent History Respiratory Surgery: No Pertinent History GI Surgical History: Hernia Repair, Other Genitourinary Surgical Hx: No Pertinent History Musculskeletal Surgical Hx: No Pertinent History Male Surgical History: Other Other Surgical History: non-hodkins lymphoma exploratory surgery x two, bladder growths removed r/t bladder cancer - Social History Smoking Status: Former smoker Exposure to second hand smoke: No Alcohol: None Drug Use: none - Physical Exam Vital Signs: Vital Signs - 24 hr Temp Pulse Resp BP Pulse Ox 11/18/22 16:00 98.3 F 76 16 126/60 94 L 11/18/22 12:45 101.2 F 83 143/67 88 L 11/18/22 12:44 88 L 11/18/22 12:36 101.2 F 83 30 H 143/67 88 L General Appearance: no apparent distress Neurologic Exam: alert, oriented x 3, cooperative Respiratory Exam: crackles/rales, rhonchi Cardiovascular Exam: regular rate/rhythm, normal heart sounds, normal peripheral pulses Gastrointestinal/Abdomen Exam: soft, normal bowel sounds, No tenderness, No mass Results - Labs Lab/Micro Results: Lab Results-Last 24 Hours 11/18/22 11/18/22 Range/Units 13:28 13:28 WBC 8.3 (4.0-10.5) x10^3/uL RBC 3.42 L (4.1-5.6) x10^6/uL Hgb 9.4 L (12.5-18.0) g/dL Hct 30.4 L (42-50) % MCV 88.9 (78-100) fL MCH 27.5 (26-32) pg MCHC 30.9 L (32-36) g/dL RDW 14.3 H (11.5-14.0) % Plt Count 212 (150-450) x10^3/uL MPV 9.3 (7.5-11.0) fL Sodium 135 L (137-145) mmol/L Potassium 3.8 (3.5-5.1) mmol/L Chloride 103 (98-107) mmol/L Carbon Dioxide 26 (22-30) mmol/L Anion Gap 9.9 (5-15) MEQ/L BUN 14 (9-20) mg/dL Creatinine 0.78 (0.66-1.25) mg/dL Estimated GFR > 60.0 ML/MIN Glucose 119 H (74-106) mg/dL Calcium 7.5 L (8.4-10.2) mg/dL Prealbumin 7.99 L (17.6-36.0) mg/dL - Other Procedures and Tests Respiratory Therapy 11/18/22 12:34 Oxygen NASAL CANNULA 2 lpm Assessment/Plan (1) Pneumonia Current Visit: Yes Status: Acute Assessment & Plan: rocephin/zithromax ordered for CAP, blood cultures pending. Code(s): J18.9 - PNEUMONIA, UNSPECIFIED ORGANISM (2) CHF (congestive heart failure) Current Visit: Yes Status: Acute Assessment & Plan: IV lasix given, due to retention estrella ordered Code(s): I50.9 - HEART FAILURE, UNSPECIFIED (3) Urinary retention Current Visit: Yes Status: Acute Assessment & Plan: insert FC Code(s): R33.9 - RETENTION OF URINE, UNSPECIFIED
[2022-11-18] MEDS ORDERED: Flomax 0.4 MG PO ONE (17:12)
[2022-11-18] MEDS: DUONEB 0.5-3 MG/3 ml Neb IH SCH ×3 (17:13→23:23)
[2022-11-18 21:13] LABS: Appearance Clear (Clear); Bacteria None Seen /HPF (None Seen); Bilirubin Negative (Negative); Blood Large (Negative); Epithelial Cells None Seen /HPF (None Seen); Glucose, Urine Negative (Negative); Hyaline Casts NONE SEEN /LPF (0-2); Ketones Negative (Negative); Leukocyte Esterase Negative (Negative); Nitrite Negative (Negative); Protein,Urine Dip Negative (Negative); RBC 21-50 /HPF (0-5); Urobilinogen 0.2 mg/dL (0.2); WBC 0-2 /HPF (0-5)
[2022-11-18 21:18] LABS: ADD URINE CULTURE? NO (NO)
[2022-11-19] MEDS: DUONEB 0.5-3 MG/3 ml Neb IH SCH ×3 (05:22→18:44)
[2022-11-19 05:32] LABS: Absolute Neutrophil Ct (ANC) 4.12 x10^3/uL (1.4-6.9); BASOPHIL % 0.2 % (0.0-0.4); Basophil (Absolute #) 0.01 x10^3/uL (0-0.4); Eosinophil % 0.3 % (0.00-5.0); Eosinophil (Absolute #) 0.02 x10^3/uL (0-0.5); Hemoglobin 9.1 g/dL (12.5-18.0); IMMATURE GRAN # 0.03 x10^3u/L (0.00-0.03); IMMATURE GRAN % 0.5 % (0.00-0.4); Lymphocyte (Absolute #) 1.12 x10^3/uL (1.0-4.6); Lymphocytes % 19.3 % (24.0-44.0); Mean Cell Volume 90.6 fL (78-100); Mean Corpuscular Hemoglobin 27.5 pg (26-32); Mean Corpuscular Hgb Concent. 30.3 g/dL (32-36); Mean Platelet Volume 9.5 fL (7.5-11.0); Monocyte (Absolute #) 0.49 x10^3/uL (0.0-1.3); Monocytes % 8.5 % (0.0-12.0); Neutrophil % 71.2 % (36.0-66.0); Platelet Count 229 x10^3/uL (150-450); Red Blood Count 3.31 x10^6/uL (4.1-5.6); Red Cell Distribution Width 14.2 % (11.5-14.0); White Blood Count 5.8 x10^3/uL (4.0-10.5)
[2022-11-19 05:54] LABS: BLOOD UREA NITROGEN 15 mg/dL (9-20); CHLORIDE 102 mmol/L (98-107); Calcium 7.6 mg/dL (8.4-10.2); Carbon Dioxide 28 mmol/L (22-30); Creatinine 1 0.78 mg/dL (0.66-1.25); EST GLOMERULAR FILTRATION RATE > 60.0 ML/MIN; Glucose 92 mg/dL (74-106); MAGNESIUM 2.1 mg/dL (1.6-2.3); NT PRO BNPII 10500 pg/mL (<300); Potassium 3.6 mmol/L (3.5-5.1); SODIUM 136 mmol/L (137-145)
[2022-11-19] MEDS ORDERED: Klor Con PO ONE (08:30)
[2022-11-19] MEDS ORDERED: Lasix 40 MG/4 ML IV ONE (08:30)
--- NOTE | 2022-11-19 08:33 | PCM.NOTE ---
Date and Time: 11/19/22 08 patient feeling better this am, was able to void well overnight. his breathing is improved, has some sputum production with cough. Objective Exam General Appearance: no apparent distress Skin Exam: normal color, warm Wound Assessment: Skin/Wound Assessment Wound/Incision Assessment Start: 11/18/22 13:13 Text: Status: Active Freq: Q6H Protocol: Document 11/19/22 02:00 WW (Rec: 11/19/22 02:25 WW [id number]) Wound Photo Photo Taken No Respiratory Exam: crackles/rales Cardiovascular Exam: regular rate/rhythm, normal heart sounds Gastrointestinal/Abdomen Exam: soft, No tenderness, No mass OBJECTIVE DATA Vital Signs: Vital Signs - 24 hr Temp Pulse Resp BP Pulse Ox 11/19/22 07:30 98.4 F 84 16 133/67 92 L 11/19/22 05:22 74 15 94 L 11/19/22 03:59 98.0 F 63 18 118/55 96 11/18/22 23:38 98.4 F 69 22 147/68 96 11/18/22 23:23 64 15 94 L 11/18/22 20:00 98.7 F 71 20 116/58 94 L 11/18/22 17:16 70 16 93 L 11/18/22 16:00 98.3 F 76 16 126/60 94 L 11/18/22 12:45 101.2 F 83 143/67 88 L 11/18/22 12:44 88 L 11/18/22 12:36 101.2 F 83 30 H 143/67 88 L Pain Assessment - Last Documented Pain Intensity 0 Intake and Output: Intake & Output 11/16/22 11/17/22 11/18/22 11/19/22 11:59 11:59 11:59 11:59 Intake Total 1160 Output Total 1845 Balance -685 Weight 74.4 kg Lab Results: Lab Results-Last 24 Hours 11/18/22 11/18/22 11/18/22 Range/Units 13:28 13:28 13:28 WBC 8.3 (4.0-10.5) x10^3/uL RBC 3.42 L (4.1-5.6) x10^6/uL Hgb 9.4 L (12.5-18.0) g/dL Hct 30.4 L (42-50) % MCV 88.9 (78-100) fL MCH 27.5 (26-32) pg MCHC 30.9 L (32-36) g/dL RDW 14.3 H (11.5-14.0) % Plt Count 212 (150-450) x10^3/uL MPV 9.3 (7.5-11.0) fL Gran % (36.0-66.0) % Immature Gran % (Auto) (0.00-0.4) % Nucleat RBC Rel Count (0.00-0.1) % Eos # (Auto) (0-0.5) x10^3/uL Immature Gran # (Auto) (0.00-0.03) x10^3u/L Absolute Lymphs (auto) (1.0-4.6) x10^3/uL Absolute Monos (auto) (0.0-1.3) x10^3/uL Absolute Nucleated RBC (0.00-0.01) x10^3u/L Lymphocytes % (24.0-44.0) % Monocytes % (0.0-12.0) % Eosinophils % (0.00-5.0) % Basophils % (0.0-0.4) % Absolute Granulocytes (1.4-6.9) x10^3/uL Basophils # (0-0.4) x10^3/uL Sodium 135 L (137-145) mmol/L Potassium 3.8 (3.5-5.1) mmol/L Chloride 103 (98-107) mmol/L Carbon Dioxide 26 (22-30) mmol/L Anion Gap 9.9 (5-15) MEQ/L BUN 14 (9-20) mg/dL Creatinine 0.78 (0.66-1.25) mg/dL Estimated GFR > 60.0 ML/MIN Glucose 119 H (74-106) mg/dL Calcium 7.5 L (8.4-10.2) mg/dL Magnesium (1.6-2.3) mg/dL NT-Pro-B Natriuret Pep (<300) pg/mL Prealbumin 7.99 L (17.6-36.0) mg/dL PSA Screen 6.900 H (0-4) ng/mL Urine Color (Yellow) Urine Appearance (Clear) Urine pH (4.6-8.0) Ur Specific [place] (1.005-1.030) Urine Protein (Negative) Urine Glucose (UA) (Negative) mg/dL Urine Ketones (Negative) Urine Blood (Negative) Urine Nitrite (Negative) Urine Bilirubin (Negative) Urine Urobilinogen (0.2) mg/dL Ur Leukocyte Esterase (Negative) U Hyaline Cast (Auto) (0-2) /LPF Urine Microscopic RBC (0-5) /HPF Urine Microscopic WBC (0-5) /HPF Ur Epithelial Cells (None Seen) /HPF Urine Bacteria (None Seen) /HPF Urine Culture Reflexed (NO) 11/18/22 11/19/22 11/19/22 Range/Units 21:00 04:31 04:31 WBC 5.8 (4.0-10.5) x10^3/uL RBC 3.31 L (4.1-5.6) x10^6/uL Hgb 9.1 L (12.5-18.0) g/dL Hct 30.0 L (42-50) % MCV 90.6 (78-100) fL MCH 27.5 (26-32) pg MCHC 30.3 L (32-36) g/dL RDW 14.2 H (11.5-14.0) % Plt Count 229 (150-450) x10^3/uL MPV 9.5 (7.5-11.0) fL Gran % 71.2 H (36.0-66.0) % Immature Gran % (Auto) 0.5 H (0.00-0.4) % Nucleat RBC Rel Count 0.0 (0.00-0.1) % Eos # (Auto) 0.02 (0-0.5) x10^3/uL Immature Gran # (Auto) 0.03 (0.00-0.03) x10^3u/L Absolute Lymphs (auto) 1.12 (1.0-4.6) x10^3/uL Absolute Monos (auto) 0.49 (0.0-1.3) x10^3/uL Absolute Nucleated RBC 0.00 (0.00-0.01) x10^3u/L Lymphocytes % 19.3 L (24.0-44.0) % Monocytes % 8.5 (0.0-12.0) % Eosinophils % 0.3 (0.00-5.0) % Basophils % 0.2 (0.0-0.4) % Absolute Granulocytes 4.12 (1.4-6.9) x10^3/uL Basophils # 0.01 (0-0.4) x10^3/uL Sodium 136 L (137-145) mmol/L Potassium 3.6 (3.5-5.1) mmol/L Chloride 102 (98-107) mmol/L Carbon Dioxide 28 (22-30) mmol/L Anion Gap 10.0 (5-15) MEQ/L BUN 15 (9-20) mg/dL Creatinine 0.78 (0.66-1.25) mg/dL Estimated GFR > 60.0 ML/MIN Glucose 92 (74-106) mg/dL Calcium 7.6 L (8.4-10.2) mg/dL Magnesium 2.1 (1.6-2.3) mg/dL NT-Pro-B Natriuret Pep 90881 (<300) pg/mL Prealbumin (17.6-36.0) mg/dL PSA Screen (0-4) ng/mL Urine Color Yellow (Yellow) Urine Appearance Clear (Clear) Urine pH 5.0 (4.6-8.0) Ur Specific [place] 1.010 (1.005-1.030) Urine Protein Negative (Negative) Urine Glucose (UA) Negative (Negative) mg/dL Urine Ketones Negative (Negative) Urine Blood Large A (Negative) Urine Nitrite Negative (Negative) Urine Bilirubin Negative (Negative) Urine Urobilinogen 0.2 (0.2) mg/dL Ur Leukocyte Esterase Negative (Negative) U Hyaline Cast (Auto) NONE SEEN (0-2) /LPF Urine Microscopic RBC 21-50 A (0-5) /HPF Urine Microscopic WBC 0-2 (0-5) /HPF Ur Epithelial Cells None Seen (None Seen) /HPF Urine Bacteria None Seen (None Seen) /HPF Urine Culture Reflexed NO (NO) Assessment/Plan (1) Pneumonia Current Visit: Yes Status: Acute Assessment & Plan: continue rocephin/zithromax, blood culture pending. clinically improving Code(s): J18.9 - PNEUMONIA, UNSPECIFIED ORGANISM (2) CHF (congestive heart failure) Current Visit: Yes Status: Acute Assessment & Plan: will give another dose of lasix 40mg IV today, some improvement in volume status on exam Code(s): I50.9 - HEART FAILURE, UNSPECIFIED (3) Urinary retention Current Visit: Yes Status: Acute Assessment & Plan: resolved, continue flomax Code(s): R33.9 - RETENTION OF URINE, UNSPECIFIED
[2022-11-19] MEDS: Flomax 0.4 MG PO SCH (09:39)
[2022-11-19] MEDS: ROCEPHIN 1 Gm-D5w 50 ml Bag** 1 G/50 ML IVPB IV SCH (09:39)
[2022-11-19] MEDS: ENOXAPARIN SODIUM SQ SCH (09:39)
[2022-11-19] MEDS: Zithromax 500 MG/ 250 ML NaCl Premix 500 MG/250 ML IVPB IV SCH (10:13)
[2022-11-20] MEDS: TYLENOL 325 MG PO PRN (00:08)
[2022-11-20 05:34] LABS: Absolute Neutrophil Ct (ANC) 3.95 x10^3/uL (1.4-6.9); BASOPHIL % 0.4 % (0.0-0.4); Basophil (Absolute #) 0.02 x10^3/uL (0-0.4); Eosinophil % 1.5 % (0.00-5.0); Eosinophil (Absolute #) 0.08 x10^3/uL (0-0.5); Hematocrit 31.7 % (42-50); Hemoglobin 9.8 g/dL (12.5-18.0); IMMATURE GRAN # 0.03 x10^3u/L (0.00-0.03); IMMATURE GRAN % 0.6 % (0.00-0.4); Lymphocyte (Absolute #) 0.78 x10^3/uL (1.0-4.6); Lymphocytes % 14.6 % (24.0-44.0); Mean Cell Volume 87.3 fL (78-100); Mean Corpuscular Hgb Concent. 30.9 g/dL (32-36); Mean Platelet Volume 9.1 fL (7.5-11.0); Monocyte (Absolute #) 0.48 x10^3/uL (0.0-1.3); Neutrophil % 73.9 % (36.0-66.0); Platelet Count 263 x10^3/uL (150-450); Red Blood Count 3.63 x10^6/uL (4.1-5.6); Red Cell Distribution Width 14.3 % (11.5-14.0); White Blood Count 5.3 x10^3/uL (4.0-10.5)
[2022-11-20] MEDS: DUONEB 0.5-3 MG/3 ml Neb IH SCH ×3 (06:46→18:42)
[2022-11-20 06:57] LABS: ANION GAP 9.9 MEQ/L (5-15); BLOOD UREA NITROGEN 15 mg/dL (9-20); CHLORIDE 102 mmol/L (98-107); Calcium 7.9 mg/dL (8.4-10.2); Carbon Dioxide 30 mmol/L (22-30); Creatinine 1 0.71 mg/dL (0.66-1.25); EST GLOMERULAR FILTRATION RATE > 60.0 ML/MIN; Glucose 102 mg/dL (74-106); NT PRO BNPII 4470 pg/mL (<300); Potassium 3.8 mmol/L (3.5-5.1); SODIUM 139 mmol/L (137-145)
[2022-11-20] MEDS: ROCEPHIN 1 Gm-D5w 50 ml Bag** 1 G/50 ML IVPB IV SCH (08:56)
[2022-11-20] MEDS: Flomax 0.4 MG PO SCH (08:57)
[2022-11-20] MEDS: ENOXAPARIN SODIUM SQ SCH (08:57)
[2022-11-20] MEDS ORDERED: Klor Con PO ONE (09:14)
[2022-11-20] MEDS ORDERED: Lasix 40 MG/4 ML IV ONE (09:14)
--- NOTE | 2022-11-20 09:17 | PCM.NOTE ---
Date and Time: 11/20/22914 Subjective Assessment: feeling better, has some sputum production with cough. swelling improved, overall feeling better Objective Exam General Appearance: no apparent distress Neurologic Exam: alert, oriented x 3 Wound Assessment: Skin/Wound Assessment Wound/Incision Assessment Start: 11/18/22 13:13 Text: Status: Active Freq: Q6H Protocol: Document 11/20/22 02:00 WW (Rec: 11/20/22 02:27 WW [id number]) Wound Photo Photo Taken No Respiratory Exam: crackles/rales (clearing, nearly resolved) Cardiovascular Exam: regular rate/rhythm, normal heart sounds Extremity Exam: pedal edema OBJECTIVE DATA Vital Signs: Vital Signs - 24 hr Temp Pulse Resp BP Pulse Ox 11/20/22 08:00 98.2 F 73 16 121/58 92 L 11/20/22 06:48 70 22 94 L 11/20/22 05:00 99.1 F 70 18 127/60 95 11/20/22 01:25 98.7 F 11/20/22 00:00 100.4 F 73 20 135/64 96 11/19/22 20:00 98.4 F 75 18 130/61 95 11/19/22 19:45 75 18 96 11/19/22 15:28 98.7 F 76 16 123/60 97 11/19/22 13:32 70 18 98 11/19/22 12:00 98.4 F 74 16 118/58 95 Pain Assessment - Last Documented Pain Intensity 0 Pain Scale Used 0-10 Pain Scale Intake and Output: Intake & Output 11/17/22 11/18/22 11/19/22 11/20/22 11:59 11:59 11:59 11:59 Intake Total 1400 1155 Output Total 1845 1825 Balance -445 -670 Weight 74.4 kg Lab Results: Lab Results-Last 24 Hours 11/20/22 11/20/22 Range/Units 05:03 05:03 WBC 5.3 (4.0-10.5) x10^3/uL RBC 3.63 L (4.1-5.6) x10^6/uL Hgb 9.8 L (12.5-18.0) g/dL Hct 31.7 L (42-50) % MCV 87.3 (78-100) fL MCH 27.0 (26-32) pg MCHC 30.9 L (32-36) g/dL RDW 14.3 H (11.5-14.0) % Plt Count 263 (150-450) x10^3/uL MPV 9.1 (7.5-11.0) fL Gran % 73.9 H (36.0-66.0) % Immature Gran % (Auto) 0.6 H (0.00-0.4) % Nucleat RBC Rel Count 0.0 (0.00-0.1) % Eos # (Auto) 0.08 (0-0.5) x10^3/uL Immature Gran # (Auto) 0.03 (0.00-0.03) x10^3u/L Absolute Lymphs (auto) 0.78 L (1.0-4.6) x10^3/uL Absolute Monos (auto) 0.48 (0.0-1.3) x10^3/uL Absolute Nucleated RBC 0.00 (0.00-0.01) x10^3u/L Lymphocytes % 14.6 L (24.0-44.0) % Monocytes % 9.0 (0.0-12.0) % Eosinophils % 1.5 (0.00-5.0) % Basophils % 0.4 (0.0-0.4) % Absolute Granulocytes 3.95 (1.4-6.9) x10^3/uL Basophils # 0.02 (0-0.4) x10^3/uL Sodium 139 (137-145) mmol/L Potassium 3.8 (3.5-5.1) mmol/L Chloride 102 (98-107) mmol/L Carbon Dioxide 30 (22-30) mmol/L Anion Gap 9.9 (5-15) MEQ/L BUN 15 (9-20) mg/dL Creatinine 0.71 (0.66-1.25) mg/dL Estimated GFR > 60.0 ML/MIN Glucose 102 (74-106) mg/dL Calcium 7.9 L (8.4-10.2) mg/dL NT-Pro-B Natriuret Pep 4470 (<300) pg/mL Assessment/Plan (1) Pneumonia Current Visit: Yes Status: Acute Assessment & Plan: continue rocephin/zithromax, clinically improving. attempt to wean to room air, can discharge later today or tomorrow if able to tolerate room air Code(s): J18.9 - PNEUMONIA, UNSPECIFIED ORGANISM (2) CHF (congestive heart failure) Current Visit: Yes Status: Acute Assessment & Plan: repeat lasix 40mg IV, still some mild volume overload but nearly euvolemic Code(s): I50.9 - HEART FAILURE, UNSPECIFIED (3) Urinary retention Current Visit: Yes Status: Acute Code(s): R33.9 - RETENTION OF URINE, UNSPECIFIED
[2022-11-20] MEDS: Zithromax 500 MG/ 250 ML NaCl Premix 500 MG/250 ML IVPB IV SCH (09:36)
[2022-11-21] MEDS: DUONEB 0.5-3 MG/3 ml Neb IH SCH ×3 (04:03→06:58)
[2022-11-21] MEDS: TYLENOL 325 MG PO PRN (04:49)
[2022-11-21 05:37] LABS: Absolute Neutrophil Ct (ANC) 3.62 x10^3/uL (1.4-6.9); BASOPHIL % 0.2 % (0.0-0.4); Basophil (Absolute #) 0.01 x10^3/uL (0-0.4); Eosinophil % 1.9 % (0.00-5.0); Eosinophil (Absolute #) 0.09 x10^3/uL (0-0.5); Hematocrit 35.6 % (42-50); Hemoglobin 10.7 g/dL (12.5-18.0); IMMATURE GRAN # 0.02 x10^3u/L (0.00-0.03); IMMATURE GRAN % 0.4 % (0.00-0.4); Lymphocyte (Absolute #) 0.69 x10^3/uL (1.0-4.6); Lymphocytes % 14.5 % (24.0-44.0); Mean Cell Volume 88.8 fL (78-100); Mean Corpuscular Hemoglobin 26.7 pg (26-32); Mean Corpuscular Hgb Concent. 30.1 g/dL (32-36); Mean Platelet Volume 9.2 fL (7.5-11.0); Monocyte (Absolute #) 0.32 x10^3/uL (0.0-1.3); Monocytes % 6.7 % (0.0-12.0); Neutrophil % 76.3 % (36.0-66.0); Platelet Count 305 x10^3/uL (150-450); Red Blood Count 4.01 x10^6/uL (4.1-5.6); White Blood Count 4.8 x10^3/uL (4.0-10.5)
[2022-11-21 06:02] LABS: ANION GAP 10.8 MEQ/L (5-15); BLOOD UREA NITROGEN 16 mg/dL (9-20); CHLORIDE 100 mmol/L (98-107); Carbon Dioxide 30 mmol/L (22-30); Creatinine 1 0.68 mg/dL (0.66-1.25); EST GLOMERULAR FILTRATION RATE > 60.0 ML/MIN; Glucose 96 mg/dL (74-106); NT PRO BNPII 4690 pg/mL (<300); SODIUM 137 mmol/L (137-145)
--- NOTE | 2022-11-21 07:39 | PCM.DS ---
Discharge Summary Date of Admission: 11/18/22 12:18 Admitting Physician: ALESHA MCKEON Primary Care Provider: ALESHA MCKEON Allergies Allergies No Known Drug Allergies Allergy (Verified 12/13/21 15:09) Hospital Summary - Hospital Course Hospital Course: patient was admitted with pneumonia and chf exacerbation, he is doing much better and on room air. diuresed well, afebrile and cough is improved. - Vitals & Intake/Output Vital Signs: Vital Signs Temperature 99.3 F 11/21/22 04:00 Pulse Rate 108 H 11/21/22 07:01 Respiratory Rate 16 11/21/22 07:01 Blood Pressure 138/77 11/21/22 04:00 O2 Sat by Pulse Oximetry 91 L 11/21/22 07:01 Intake & Output: Intake & Output 11/18/22 11/19/22 11/20/22 11/21/22 11:59 11:59 11:59 11:59 Intake Total 1400 1395 1595 Output Total 1849 2175 2000 Balance -777 -527 -437 Weight 74.4 kg 74.4 kg - Lab Result Diagrams: 11/21/22 05:14 11/21/22 05:14 Lab Results-Last 24 Hrs: Lab Results-Last 24 Hours 11/21/22 11/21/22 Range/Units 05:14 05:14 WBC 4.8 (4.0-10.5) x10^3/uL RBC 4.01 L (4.1-5.6) x10^6/uL Hgb 10.7 L (12.5-18.0) g/dL Hct 35.6 L (42-50) % MCV 88.8 (78-100) fL MCH 26.7 (26-32) pg MCHC 30.1 L (32-36) g/dL RDW 14.0 (11.5-14.0) % Plt Count 305 (150-450) x10^3/uL MPV 9.2 (7.5-11.0) fL Gran % 76.3 H (36.0-66.0) % Immature Gran % (Auto) 0.4 (0.00-0.4) % Nucleat RBC Rel Count 0.0 (0.00-0.1) % Eos # (Auto) 0.09 (0-0.5) x10^3/uL Immature Gran # (Auto) 0.02 (0.00-0.03) x10^3u/L Absolute Lymphs (auto) 0.69 L (1.0-4.6) x10^3/uL Absolute Monos (auto) 0.32 (0.0-1.3) x10^3/uL Absolute Nucleated RBC 0.00 (0.00-0.01) x10^3u/L Lymphocytes % 14.5 L (24.0-44.0) % Monocytes % 6.7 (0.0-12.0) % Eosinophils % 1.9 (0.00-5.0) % Basophils % 0.2 (0.0-0.4) % Absolute Granulocytes 3.62 (1.4-6.9) x10^3/uL Basophils # 0.01 (0-0.4) x10^3/uL Sodium 137 (137-145) mmol/L Potassium 4.0 (3.5-5.1) mmol/L Chloride 100 (98-107) mmol/L Carbon Dioxide 30 (22-30) mmol/L Anion Gap 10.8 (5-15) MEQ/L BUN 16 (9-20) mg/dL Creatinine 0.68 (0.66-1.25) mg/dL Estimated GFR > 60.0 ML/MIN Glucose 96 (74-106) mg/dL Calcium 8.0 L (8.4-10.2) mg/dL NT-Pro-B Natriuret Pep 4690 (<300) pg/mL Micro Results-Entire Visit: Microbiology 11/18/22 13:35 Blood Culture - Preliminary Blood NO GROWTH TO DATE - Procedures and Test Procedures and Tests throughout Hospitalization: Therapy Orders & Screens 11/18/22 12:34 Oxygen NASAL CANNULA 2 lpm Comment: 11/18/22 17:15 Respiratory Therapy Assessment DAILY Comment: Diagnosis: pneumonia Discharge Exam General Appearance: no apparent distress Respiratory Exam: lungs clear, No respiratory distress Cardiovascular Exam: regular rate/rhythm, normal heart sounds Gastrointestinal/Abdomen Exam: soft, No tenderness, No mass Extremity Exam: normal inspection, normal range of motion Skin Exam: normal color, warm, dry Final Diagnosis/Problem List - Final Discharge Diagnosis/Problem (1) Pneumonia Current Visit: Yes Status: Acute Code(s): J18.9 - PNEUMONIA, UNSPECIFIED ORGANISM (2) CHF (congestive heart failure) Current Visit: Yes Status: Acute Code(s): I50.9 - HEART FAILURE, UNSPECIFIED (3) Urinary retention Current Visit: Yes Status: Acute Code(s): R33.9 - RETENTION OF URINE, UNSPECIFIED - Discharge Disposition: Home, Self-Care Condition: Stable Prescriptions: New Cefdinir 300 mg PO BID #14 cap Tamsulosin HCl 0.4 mg [Flomax 0.4 MG] 0.4 mg PO DAILY #30 cap Furosemide 20 mg [Lasix 20 mg] 20 mg PO DAILY #30 tablet Potassium Chloride 10 meq PO DAILY #30 tablet Continue Ibuprofen 400 mg PO Q4HPRN PRN PRN Reason: Pain And/Or Fever Cholecalciferol (Vitamin D3) [Vitamin D] 1,000 unit PO DAILY Follow up with: ALESHA MCKEON MD [Primary Care Provider] -
[2022-11-21] MEDS: ROCEPHIN 1 Gm-D5w 50 ml Bag** 1 G/50 ML IVPB IV SCH (07:45)
[2022-11-21] MEDS: ENOXAPARIN SODIUM SQ SCH (07:45)
[2022-11-21] MEDS: Zithromax 500 MG/ 250 ML NaCl Premix 500 MG/250 ML IVPB IV SCH (07:46)
[2022-11-21] MEDS: Flomax 0.4 MG PO SCH (07:57)
[2022-11-21 08:58] VITALS: BP 118/57; PULSE 77; O2SAT 88
== END 2022-11-21 09:00 | disposition home or self-care (01) | DRG 195 ==
LOC: MED SURG 12:18
PROVIDERS: ADMIT Family Medicine; ATTEND Family Medicine
DX: J18.9 Pneumonia, unspecified organism (principal); I50.9 Heart failure, unspecified; R33.9 Retention of urine, unspecified; Z79.899 Other long term (current) drug therapy; Z20.828 Contact with and (suspected) exposure to other viral communicable diseases; Z85.51 Personal history of malignant neoplasm of bladder
CPT/HCPCS: 36415; 71045; 80048; 80053; 81001; 83735; 83880; 84134; 85025; 85027; 87040; 94640; 94760; G0103; J0456; J0696; J1642; J1650; J1940; A9270-GY

== ENCOUNTER 2023-03-13 08:37 | Day surgery (SDC) | payer MEDICARE, OTHER ==
--- NOTE | 2023-03-11 15:28 | HP ---
DATE: 03/13/2023 HISTORY OF PRESENT ILLNESS: Patient is an 87 year-old male who presents with a right groin bulge. He has a moderately incarcerated right inguinal hernia on exam. Patient has some pain with this. Patient would like to have this fixed. PAST MEDICAL HISTORY: Benign prostatic hypertrophy, hypertension. CURRENT MEDICATIONS: Iron, Lasix, tamsulosin, potassium. ALLERGIES: NEGATIVE. PAST SURGERIES: Hernia repair, jaw surgery. SOCIAL HISTORY: Negative. FAMILY HISTORY: None reported. REVIEW OF SYSTEMS: CONSTITUTIONAL: Denies fever or chills. CHEST: Denies shortness of breath. CVS: Denies chest pain. ABDOMEN: Reports right inguinal hernia pain. PHYSICAL EXAMINATION: GENERAL: No acute distress. CHEST: Nonlabored. Denies shortness of breath. CVS: Regular rate and rhythm. ABDOMEN: Soft. Right inguinal hernia. IMPRESSION: 1. MODERATELY SIZED INCARCERATED RIGHT INGUINAL HERNIA. PLAN: Right inguinal hernia repair with possible mesh with Dr. Georges Serrano. This report was dictated for Dr. Serrano by Elodia Suarez NP.
[2023-03-13] MEDS ORDERED: Lactated Ringers 1,000 ML IV SCH (09:00)
[2023-03-13] MEDS ORDERED: CEFAZOLIN 2 GM-D5W BAG** 2 GM/50 ML ML IV SCH (09:00)
[2023-03-13] MEDS ORDERED: Lactated Ringers 500 ML IV ONE (09:09)
[2023-03-13] MEDS ORDERED: Sensorcaine 0.25% 10 ML ONE (10:39)
[2023-03-13] MEDS ORDERED: KEFZOL 1 GM ONE (10:42)
[2023-03-13] MEDS ORDERED: Versed 2 MG/2 ML Injection ONE (10:58)
[2023-03-13] MEDS ORDERED: Marcaine 0.5%/Epinephrine 10 ML ONE (11:16)
[2023-03-13] MEDS ORDERED: Decadron 4 MG INJ ONE (11:40)
--- NOTE | 2023-03-13 13:01 | OP ---
SURGERY DATE/TIME: 03/13/2023 1044 PREOPERATIVE DIAGNOSIS: Symptomatic right inguinal hernia. POSTOPERATIVE DIAGNOSIS: Right inguinal hernia indirect. PROCEDURE: Right inguinal hernia indirect with deep repair with no mesh. SURGEON: Georges Serrano M.D. ROAD GANG SUPERVISOR: Elodia Suarez NP. ANESTHESIA: General. COMPLICATIONS: None. CONDITION: Stable. DESCRIPTION OF PROCEDURE: Patient taken to surgery. General anesthetic. Routine prep and drape. Time out performed. Curvilinear incision. 0.25% Marcaine. External oblique opened. Cord skeletonized. 3 inch indirect hernia sac. No sliding component. Highly ligated at the base with 0 Prolene. The floor was satisfactory. The internal ring looked snugged up with figure-of-8 suture #0 Prolene. Starting at the symphysis coming up with the suture. A deep repaired incision up the femoral sheath up to Poupart's. The repair was solid. No mesh was required. Cord laid back in natural position. External oblique closed with 2-0 Vicryl. Michael fascia closed with 3-0 Vicryl. Skin closed with 4-0 Vicryl. Steri-Strips applied. Sterile dressing applied. Findings discussed with the family in the waiting room.
[2023-03-13] MEDS: NORCO 5/325 MG PO PRN ×2 (13:52→19:40)
[2023-03-13 19:50] VITALS: BP 158/50; PULSE 113; RESP 21; TEMP 97; O2SAT 96
== END 2023-03-13 20:10 | disposition home or self-care (01) ==
LOC: SDC 08:37 → MED SURG 16:40 → UNDOADMOB 16:48 → MED SURG 16:48 → SDC 20:10
PROVIDERS: ATTEND Surgery
DX: K40.90 Unilateral inguinal hernia, without obstruction or gangrene, not specified as recurrent (principal)
CPT/HCPCS: 64486; 76937; 76942; 93005; 99100; J0690; J1100; J2250; A9270-GY

== ENCOUNTER 2024-05-17 13:22 | Emergency (ER) | payer MEDICARE, OTHER ==
[2024-05-17 13:40] VITALS: TEMP 98.9
--- NOTE | 2024-05-17 13:46 | ERPHSYRPT ---
- History of Present Illness Source: patient Exam Limitations: no limitations Patient Subjective Stated Complaint: C/O cough for about a week. Triage Nursing Assessment: Patient ambulated back to ER. He is SOB with exertion. Patient has a weak cough. Lungs clear. Some edema present to BLE. ELVIRA YANEZ. Physician History: Patient's had a cough for about a week. He says give a bit short of breath now with exertion. He has not had any fever or chills. He said some clear sputum. He has had some edema in his lower extremities which is new. Exertion makes the cough and shortness of breath worse. Rest makes it better. He has not had any chest pain. He is had no nausea vomiting or fever or chills. He is had no exposures to anybody ill that he knows. He said he did have a cold and upper respiratory infectious symptoms starting about a week ago to but its gotten worse. Allergies/Adverse Reactions: No Known Drug Allergies Allergy (Verified 05/17/24 13:27) Home Medications: Albuterol Sulfate [Albuterol Sulfate Hfa] 2 puff PO Q4-6HPRN PRN 05/17/24 [History] Aspirin EC 81 mg [Ecotrin 81 mg] 81 mg PO DAILY 05/17/24 [History] Benzonatate 200 mg PO Q8H PRN PRN 05/17/24 [History] Hx Tetanus, Diphtheria Vaccination/Date Given: Yes Hx Influenza Vaccination/Date Given: Yes Hx Pneumococcal Vaccination/Date Given: Yes Immunizations Up to Date: Yes Travel Risk - International Travel Have you traveled outside of the country in past 3 weeks: No - Emerging Infectious Disease Are you exhibiting symptoms associated with any current EIDs: Yes Symptoms: Cough: New Onset, Shortness of Breath - Review of Systems Constitutional: No Symptoms Eyes: No Symptoms Ears, Nose, & Throat: No Symptoms Respiratory: Cough, Dyspnea on Exertion (GARZON) Cardiac: No Symptoms, Edema, No Chest Pain Abdominal/Gastrointestinal: No Symptoms Skin: No Symptoms - Past Medical History Pertinent Past Medical History: Yes Neurological History: No Pertinent History ENT History: Cataracts Cardiac History: No Pertinent History Respiratory History: COPD, Pneumonia Endocrine Medical History: No Pertinent History Musculoskeletal History: No Pertinent History GI Medical History: Hernia History: Bladder Cancer Psycho-Social History: No Pertinent History Male Reproductive Disorders: No Pertinent History Other Medical History: Nonhodgkins lymphoma twice, 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 - Past Surgical History Past Surgical History: Yes Neuro Surgical History: Other Cardiac: No Pertinent History Respiratory: No Pertinent History Gastrointestinal: Hernia Repair, Other Genitourinary: No Pertinent History Musculoskeletal: No Pertinent History Male Surgical History: Other Other Surgical History: non-hodkins lymphoma exploratory surgery x two, bladder growths removed r/t bladder cancer, jaw rebuilt right side,port place to right upper chest - Social History Smoking Status: Former smoker Exposure to second hand smoke: No Drug Use: none Patient Lives Alone: No - Social Determinants of Health Will the patient participate in the screening: Declined to provide - Nursing Vital Signs Nursing Vital Signs: Initial Vital Signs Temperature 98.9 F 05/17/24 13:30 Pulse Rate 102 H 05/17/24 13:30 Respiratory Rate 24 05/17/24 13:30 Blood Pressure 133/83 05/17/24 13:30 O2 Sat by Pulse Oximetry 92 L 05/17/24 13:30 Pain Scale Pain Intensity 0 - Physical Exam General Appearance: no apparent distress Ears, Nose, Throat Exam: hearing grossly normal, normal ENT inspection Respiratory Exam: normal breath sounds, lungs clear, No respiratory distress Cardiovascular/Chest Exam: normal heart sounds, regular rate/rhythm Abdominal/Gastrointestinal Exam: soft, normal bowel sounds, No tenderness, No distention Extremity Exam: non-tender, normal range of motion, pedal edema (2+ bilateral in the lower extremities) Neurologic Exam: alert, oriented x 3, cooperative Skin Exam: normal color, warm, dry SpO2 Interpretation: hypoxic, O2 applied SpO2: 92 O2 Delivery: Oxymask - Course Nursing assessment & vital signs reviewed: Yes EKG Interpreted by Me: RATE, Sinus Rhythm, NORMAL AXIS, Left Bundle Branch Block (Old when compared to an EKG from February 2023), Non-specific ST Changes Ordered Tests: Active Orders 24 hr Category Date Time Status Cnc Operator STAT Care 05/17/24 13:41 Active EKG-ER Only STAT Care 05/17/24 13:38 Active IV Insertion STAT Care 05/17/24 13:41 Active Oxygen-ED Only Nasal Cannula 2 lpm Care 05/17/24 15:15 Active CHEST 1 VIEW (PORTABLE) Stat Exams 05/17/24 13:38 Completed CHEST WITH CONTRAST [CT] Stat Exams 05/17/24 14:26 Completed BNPII [NT PRO BNPII] Stat Lab 05/17/24 14:00 Completed CBC W DIFF Stat Lab 05/17/24 14:00 Completed CMP Stat Lab 05/17/24 14:00 Completed D-DIMER QUANTITATIVE Stat Lab 05/17/24 14:00 Completed Manual Differential NC Stat Lab 05/17/24 14:00 Completed TROPONIN Q4H Lab 05/17/24 14:00 Completed TROPONIN Q4H Lab 05/17/24 16:02 Completed TROPONIN Q4H Lab 05/17/24 21:45 Ordered Medication Summary Discontinued Medications Generic Name Dose Route Start Last Admin Trade Name Freq PRN Reason Stop Dose Admin Furosemide 40 mg 05/17/24 15:02 05/17/24 15:06 Furosemide 40 Mg/4 Ml Vial IV 05/17/24 15:03 40 mg STAT ONE Administration Furosemide Confirm 05/17/24 15:05 Furosemide 40 Mg/4 Ml Vial Administered 05/17/24 15:06 Dose 40 mg .ROUTE .[place] ONE Lab/Rad Data: Laboratory Result Diagrams 05/17/24 14:00 05/17/24 14:00 Laboratory Results 05/17/24 05/17/24 05/17/24 Range/Units 16:02 14:00 14:00 WBC (4.23-9.07) x10^3/uL RBC (4.63-6.08) x10^6/uL Hgb (13.7-17.5) g/dL Hct (40.1-51.0) % MCV (79.0-92.2) fL MCH (25.7-32.2) pg MCHC (32.3-36.5) g/dL RDW (11.6-14.4) % Plt Count (163-337) x10^3/uL MPV (9.4-12.4) fL Segmented Neutrophils (34.0-67.9) % Lymphocytes (Manual) (21.8-53.1) % Monocytes (Manual) (5.3-12.2) % Platelet Estimate (NORMAL) RBC Morphology Ovalocytes [place] Cells D-Dimer 3.73 H* (0.0-0.50) mg/L Sodium (135-145) mmol/L Potassium (3.5-5.1) mmol/L Chloride (98-107) mmol/L Carbon Dioxide (22-30) mmol/L Anion Gap (5-15) MEQ/L BUN (9-20) mg/dL Creatinine (0.66-1.25) mg/dL Estimated GFR ML/MIN Glucose (74-106) mg/dL Calcium (8.4-10.2) mg/dL Total Bilirubin (0.2-1.3) mg/dL AST (17-59) U/L ALT (0-50) U/L Alkaline Phosphatase (38-126) U/L Troponin I 0.045 H* 0.041 H* (0.000-0.033) ng/mL NT-Pro-B Natriuret Pep (<300) pg/mL Serum Total Protein (6.3-8.2) g/dL Albumin (3.5-5.0) g/dL Influenza Type A Ag (NEGATIVE) Influenza Type B Ag (NEGATIVE) RSV (PCR) (NEGATIVE) SARS-CoV-2 (PCR) (NEGATIVE) 05/17/24 05/17/24 05/17/24 Range/Units 14:00 14:00 14:00 WBC 6.4 (4.23-9.07) x10^3/uL RBC 3.76 L (4.63-6.08) x10^6/uL Hgb 11.0 L (13.7-17.5) g/dL Hct 35.3 L (40.1-51.0) % MCV 93.9 H (79.0-92.2) fL MCH 29.3 (25.7-32.2) pg MCHC 31.2 L (32.3-36.5) g/dL RDW 17.2 H (11.6-14.4) % Plt Count 277 (163-337) x10^3/uL MPV 9.0 L (9.4-12.4) fL Segmented Neutrophils 88 H (34.0-67.9) % Lymphocytes (Manual) 10 L (21.8-53.1) % Monocytes (Manual) 2 L (5.3-12.2) % Platelet Estimate NORMAL (NORMAL) RBC Morphology ABNORMAL Ovalocytes 1+ [place]issa Cells 1+ D-Dimer (0.0-0.50) mg/L Sodium 136 (135-145) mmol/L Potassium 4.7 (3.5-5.1) mmol/L Chloride 104 (98-107) mmol/L Carbon Dioxide 25 (22-30) mmol/L Anion Gap 11.5 (5-15) MEQ/L BUN 23 H (9-20) mg/dL Creatinine 0.65 L (0.66-1.25) mg/dL Estimated GFR 90.1 ML/MIN Glucose 129 H (74-106) mg/dL Calcium 8.2 L (8.4-10.2) mg/dL Total Bilirubin 1.00 (0.2-1.3) mg/dL AST 48 (17-59) U/L ALT 33 (0-50) U/L Alkaline Phosphatase 90 (38-126) U/L Troponin I (0.000-0.033) ng/mL NT-Pro-B Natriuret Pep 41934 (<300) pg/mL Serum Total Protein 4.4 L (6.3-8.2) g/dL Albumin 2.4 L (3.5-5.0) g/dL Influenza Type A Ag NEGATIVE (NEGATIVE) Influenza Type B Ag NEGATIVE (NEGATIVE) RSV (PCR) NEGATIVE (NEGATIVE) SARS-CoV-2 (PCR) NEGATIVE (NEGATIVE) - Progress Progress: re-examined Air Movement: fair Progress Note: Patient was a stable throughout stay. On the differential was pulmonary embolism, pneumonia, COVID, coronary vascular event, congestive heart failure, pneumonitis. Work the patient up got a CTA did not show a pulmonary embolism but it did show a small pneumothorax. His D-dimer was significantly elevated as well as his BNP. His troponin was 0.41 and 0.45 respectively at about 2 hours. I believe that that is just from heart strain. His EKG was then as interpreted by me. Is normal sinus rhythm. There was a partial left bundle branch block. I compared it to an older EKG in it was seen there as well 2. I did not see any acute ST or T changes. There was not appreciatedAxis deviation. I spoke with our hospitalist. He had agreed to accept the patient except for the thorax was a little concerning just in case that it worsened. I called [facility] they excepted. I do not speak directly to Dr. Solis but the answering service did a direct admission. 05/17/24 17:38 Medical Desision Making - Discussion of managment Care discussed with:: hospitalist Agreed on:: Treatment plan, decision to admit Will see patient: in hospital - Social Determinants of Health Pt's dx & treatment plan are significantly limited by SDOH: limited education - Risk of complications The pt has a mod risk of morbidity or mortality based on: Need for prescription drug management - Departure Departure Disposition: Transfer Clinical Impression: CHF (congestive heart failure), Dyspnea Condition: Fair Critical Care Time: No Referrals: ALESHA MCKEON MD [Primary Care Provider] - Follow up/PCP as directed Instructions: Heart Failure
[2024-05-17 14:00] LABS: Hematocrit 35.3 % (40.1-51.0); Mean Cell Volume 93.9 fL (79.0-92.2); Mean Corpuscular Hemoglobin 29.3 pg (25.7-32.2); Mean Corpuscular Hgb Concent. 31.2 g/dL (32.3-36.5); Platelet Count 277 x10^3/uL (163-337); Red Blood Count 3.76 x10^6/uL (4.63-6.08); Red Cell Distribution Width 17.2 % (11.6-14.4); White Blood Count 6.4 x10^3/uL (4.23-9.07)
--- NOTE | 2024-05-17 14:00 | XRAY ---
Indication: Cough and short of breath one month. History of lymphoma with current chemotherapy. Comparison: May 13, 2024. Portable chest demonstrates slight worsening moderate right base infiltrate/atelectasis/effusion. Remaining heart and left lung unremarkable again with COPD and right Port-A-Cath. Bony thorax intact.
[2024-05-17 14:32] LABS: ALBUMIN 2.4 g/dL (3.5-5.0); ANION GAP 11.5 MEQ/L (5-15); Calcium 8.2 mg/dL (8.4-10.2); Creatinine 1 0.65 mg/dL (0.66-1.25); EST GLOMERULAR FILTRATION RATE 90.1 ML/MIN; Potassium 4.7 mmol/L (3.5-5.1); Total Protein 4.4 g/dL (6.3-8.2)
[2024-05-17 14:36] LABS: Lymphocytes 10 % (21.8-53.1); Monocyte 2 % (5.3-12.2); Neutrophils 88 % (34.0-67.9); Total Cells Counted 100
[2024-05-17 14:38] LABS: Burr Cells 1+; Ovalocytes 1+
[2024-05-17 14:39] LABS: Platelet Estimate NORMAL (NORMAL)
[2024-05-17 14:59] LABS: INFLUENZA A NEGATIVE (NEGATIVE); INFLUENZA B NEGATIVE (NEGATIVE); RESPIRATORY SYNCTIAL VIRUS NEGATIVE (NEGATIVE); SARS-CoV-2 Xpert Express NEGATIVE (NEGATIVE)
[2024-05-17] MEDS ORDERED: Lasix 40 MG/4 ML ONE (15:05)
[2024-05-17] MEDS: Lasix 40 MG/4 ML IV ONE (15:06)
--- NOTE | 2024-05-17 15:16 | XRAY ---
Indication: Dyspnea. Elevated d-dimer. Multiple contiguous axial images obtained through the chest using 80 cc Isovue 370 contrast and PE protocol. Comparison: None Good opacification pulmonary arteries to include the lobar and segmental branches. No pulmonary embolus. Heart not enlarged with scattered coronary calcifications and right Port-A-Cath. Aorta mildly arteriosclerotic without aneurysm/dissection. A few tiny bilateral hilar calcified nodes. No pathologic mediastinal/hilar lymphadenopathy. Lungs demonstrates moderate bilateral mid to lower lung consolidating airspace disease with effusions, right greater than left. Also small right lung pneumothorax throughout, less than 10%. Incidental tiny medial right lower lobe calcified granuloma. Bony thorax intact with osteopenia and flowing osteophytes throughout spine. Limited upper abdomen demonstrates incidental 3 cm left mid renal cyst. Incompletely visualized 3.3 x 4.4 cm AAA. Impression: 1. Negative pulmonary embolus. 2. Small right pneumothorax. Query recent thoracentesis. 3. Moderate bilateral mid to lower lung consolidating airspace disease with effusions, right greater than left. 4. Chronic findings including arteriosclerotic disease with AAA, left renal cyst, chronic bony findings, and old granulomatous disease..
[2024-05-17 18:49] VITALS: PULSE 93; RESP 24; O2SAT 94
[2024-05-17 19:12] VITALS: BP 130/80
== END 2024-05-17 19:10 | disposition short-term general hospital (02) ==
LOC: ED 13:22
DX: I11.0 Hypertensive heart disease with heart failure (principal); R06.00 Dyspnea, unspecified; R05.1 Acute cough; R60.0 Localized edema; Z79.899 Other long term (current) drug therapy; Z55.9 Problems related to education and literacy, unspecified
CPT/HCPCS: 0241U; 36000; 36415; 71045; 71260; 80053; 83880; 84484; 85025; 85379; 93005; 93041; 96374; 99285; J1940